=== PATIENT | male | born 1950 | race Caucasian/White ===

== ENCOUNTER 2017-04-28 15:12 | Emergency (ER) | payer OTHER ==
[~2017-04-28] VITALS: Ht 172.7 cm; Wt 75.0 kg
[2017-04-28 18:13] LABS: ADD MIUA? YES; BILIRUBIN NEGATIVE; BLOOD LARGE; COLOR YELLOW ((YELLOW)); GLUCOSE (STRIP) NEGATIVE; KETONES NEGATIVE; LEUKOCYTES NEGATIVE; NITRITE NEGATIVE; PROTEIN (STRIP) NEGATIVE; SPECIFIC GRAVITY 1.009 (1.000-1.030); UROBILINOGEN 0.2 MG/DL (0.2-1.0)
[2017-04-28] MEDS ORDERED: CIPRO500 MG PO (18:17)
[2017-04-28 18:31] VITALS: BP 131/85
[2017-04-28 18:51] LABS: AMORPHOUS URATES CRYSTALS 1+; BACTERIA RARE /HPF; CASTS NONE SEEN /LPF; CRYSTALS PRESENT; EPITHELIAL CELLS RARE /HPF; MUCUS 1+ /LPF; RED BLOOD CELLS 20-30 /HPF (0-5); WHITE BLOOD CELLS 0-5 /HPF (0-5)
== END 2017-04-28 18:35 | disposition home or self-care (01) ==
LOC: EME 15:12
PROVIDERS: Physician Assistant
PROC: 0T9B70Z Drainage of Bladder with Drainage Device, Via Natural or Artificial Opening (ICD-10-PCS; principal; 2017-04-28)
DX: R33.9 Retention of urine, unspecified (principal); N32.0 Bladder-neck obstruction; N36.8 Other specified disorders of urethra; N40.1 Benign prostatic hyperplasia with lower urinary tract symptoms
CPT/HCPCS: 81003; 99281; 99285; C1769; J3010